=== PATIENT | female | born 2000 | race Caucasian/White ===

== ENCOUNTER 2020-04-15 02:40 | Emergency (ER) | payer OTHER ==
[~2020-04-15] VITALS: Ht 170.2 cm; Wt 51.3 kg
[2020-04-15 02:49] VITALS: Ht 170.2 cm; Wt 51.3 kg
[2020-04-15 04:20] LABS: T4(THYROXINE) 9.2 ug/dL (4.7-13.3)
[2020-04-15 04:52] VITALS: BP 116/54
== END 2020-04-15 04:52 | disposition home or self-care (01) ==
LOC: ED 02:40
PROVIDERS: Emergency Medicine
DX: R25.1 Tremor, unspecified (principal); F42.9 Obsessive-compulsive disorder, unspecified; F41.9 Anxiety disorder, unspecified; E05.90 Thyrotoxicosis, unspecified without thyrotoxic crisis or storm